=== PATIENT | female | born 1970 | race Caucasian/White ===

== ENCOUNTER → 2020-02-27 | Outpatient (CLI) | payer OTHER ==
--- NOTE | 2020-03-11 12:30 | EEG ---
[facility] [place] [address] ELECTROENCEPHALOGRAM Name: ARUNA MENDOZA Room #: [facility] Marty.#: [id number] Admission: 02/27/20 Attend Phys: Cheryl Magallon DO Discharge: Date of : 68 Report #: [id number] THIS REPORT FOR: //name// DATE OF SERVICE: 02/27/2020 This patient is being evaluated for the possibility of seizure. EEG was done by placing the electrode by standard 10-20 system of electrode placement. Both referential and sequential montages were used for recording. Background activity in this patient's EEG is about 10 Hz and 30 microvolt. The patient went to sleep that is associated with bilateral slowing and vertex sharp waves. Paroxysmal slowing was noticed during the sleep. Photic stimulation is unremarkable, but the patient does have a spike and slow wave activity arising from predominantly the left temporal area, but spread to the rest of the left cerebral hemisphere as well as in generalized fashion. IMPRESSION: The patient's study demonstrate spike and slow wave activity in the left temporal area, predominantly but present in multiple other locations. If clinically correlated that finding will be consistent with a seizure disorder and a structural lesion should be excluded if clinically indicated. <ELECTRONICALLY SIGNED> By: Scott Christy MD 03/11/20 1230 1134 [id number] Scott Christy MD /nt
== END ==
LOC: NEURO 08:21
PROVIDERS: ATTEND Psychiatry & Neurology Neurology
DX: G40.009 Localization-related (focal) (partial) idiopathic epilepsy and epileptic syndromes with seizures of localized onset, not intractable, without status epilepticus (principal)

== ENCOUNTER → 2020-06-02 | Outpatient (CLI) | payer OTHER ==
[2020-06-02 11:06] LABS: ABSOLUTE NEUTROPHILS 3.1 thou/uL (1.4-8.2); BASOPHILS 0.9 % (0.0-2.0); EOSINOPHILS 1.4 % (0.0-3.0); HEMATOCRIT 27.4 % (37.0-47.0); HEMOGLOBIN 8.2 gm/dL (12.0-15.0); LYMPHOCYTES 20.9 % (24.0-44.0); MCH 21.3 pg (26.0-34.0); MONOCYTES 7.7 % (1.0-8.0); PLATELET COUNT 346 thou/uL (150-400); POLYS 69.1 % (36.0-66.0); RBC 3.86 mil/uL (4.20-5.00); RDW 18.7 % (10.5-14.5); WBC 4.5 thou/uL (4.0-11.0)
[2020-06-02 11:21] LABS: % SATURATION 6 % (20-39); IRON 20 ug/dL (50-170); TIBC 357 ug/dL (250-450)
[2020-06-02 11:28] LABS: ALBUMIN 3.6 g/dL (3.4-5.0); ANION GAP 7 mmol/L (7-16); BUN 10 mg/dL (7-18); CALCIUM 8.7 mg/dL (8.5-10.1); CHLORIDE 106 mmol/L (98-107); CHOLESTEROL 257 mg/dL (<200); CO2 32 mmol/L (21-32); CREATININE 0.8 mg/dL (0.6-1.0); GLUCOSE 85 mg/dL (74-106); HDL CHOLESTEROL 111 mg/dL (>40); LDL CHOLESTEROL 133 mg/dL (<100); POTASSIUM 4.1 mmol/L (3.5-5.1); SGOT 22 U/L (15-37); SGPT 24 U/L (30-65); SODIUM 145 mmol/L (136-145); TC:HDL 2.3 Ratio (Not establshd); TOTAL BILIRUBIN 0.2 mg/dL (0.2-1.0); TOTAL PROTEIN 7.5 g/dL (6.4-8.2); TRIGLYCERIDE 69 mg/dL (<150); VLDL 14 mg/dL (<40)
[2020-06-02 11:38] LABS: CALCIUM 8.7 mg/dL (8.5-10.1); CREATININE 0.7 mg/dL (0.6-1.0); PHOSPHORUS 4.3 mg/dL (2.5-4.9)
[2020-06-02 13:08] LABS: OVALOCYTES 1+; POLYCHROMASIA 1+; SCHISTOCYTES FEW; TARGET CELLS FEW
[2020-06-02 13:09] LABS: TEARDROPS FEW
[2020-06-02 23:06] LABS: GLYCOHEMOGLOBIN (HGB A1C) 5.5 % (4.8-5.6)
[2020-06-03 21:05] LABS: 25-HYDROXY TOTAL 5.2 ng/mL (30.0-100.0)
[2020-06-07 14:06] LABS: ALPHA TOCOPHEROL 12.7 mg/L (7.0-25.1); GAMMA TOCOPHEROL 1.7 mg/L (0.5-5.5)
== END ==
LOC: LAB 08:57
PROVIDERS: ATTEND Family Medicine
DX: Z00.00 Encounter for general adult medical examination without abnormal findings (principal); K91.2 Postsurgical malabsorption, not elsewhere classified